=== PATIENT | female | born 1965 | race Caucasian/White ===

== ENCOUNTER 2019-07-01 11:19 | Emergency (ER) | payer SELFPAY ==
[2019-07-01] MEDS ORDERED: Acetaminophen 500 MG TAB ONE (11:58)
[2019-07-01] MEDS ORDERED: cloNIDine 0.1 MG TAB ONE (11:58)
[2019-07-01] MEDS ORDERED: Amlodipine 5 MG TAB ONE (11:58)
[2019-07-01 12:11] LABS: #Eosinphils 0.2 thou/uL (0.0-0.7); #Lymphocytes 1.5 thou/uL (1.20-3.40); #Monocytes 0.8 thou/uL (0.11-0.59); #Neutrophils 6.1 thou/uL (1.40-6.50); %Basophils 0.6 % (0.0-1.0); %Eosinophils 2.2 % (0.0-10.0); %Lymphocytes 17.6 % (21.0-51.0); %Monocytes 8.8 % (0.0-10.0); %Neutrophils 70.8 % (42.0-75.0); Hemoglobin 13.8 g/dL (12.0-16.0); Mean Corpuscular HGB CONC 34.8 g/dL (32.0-36.0); Mean Corpuscular Hemoglobin 34.4 pg (27.0-31.0); Mean Corpuscular Volume 98.9 fL (78.0-98.0); Mean Platelet Volume 7.8 fL (7.4-10.4); Platelet Count 353 thou/uL (130-400); RBC Distribution Width 13.1 % (11.5-14.5); Red Blood Cell (RBC) Count 4.01 mill/uL (4.20-5.40); White Blood Cell (WBC) Count 8.6 thou/uL (4.8-10.8)
[2019-07-01] MEDS ORDERED: Losartan 25 MG TAB PO SCH (12:15)
[2019-07-01 12:23] LABS: Bilirubin Negative (Negative); Blood, Urine Negative (Negative); Clarity Clear (Clear); Glucose, Urine (Dipstick) Normal (Negative); Leukocyte Negative Leu/uL (Negative); Nitrite Negative (Negative); Protein, Urine (Dipstick) Negative (Neg-Trace); Urobilinogen Normal mg/dL (Less than 2)
[2019-07-01 12:31] LABS: ALT (SGPT) 10 U/L (8-55); AST (SGOT) 14 U/L (5-34); Albumin 4.1 g/dL (3.5-5.0); Alkaline Phosphatase 81 U/L (40-110); Anion Gap 13 mmol/L (10-20); BUN (Urea Nitrogen) 15 mg/dL (9.8-20.1); Bilirubin, Total 0.3 mg/dL (0.2-1.2); Calc. Creatinine Clearance 0 mL/min (70-130); Calcium 8.8 mg/dL (7.8-10.44); Carbon Dioxide 28 mmol/L (22-29); Chloride 105 mmol/L (98-107); Estimated GFR-MDRD 71; Globulin 2.8 g/dL (2.4-3.5); Glucose 91 mg/dL (70-105); Potassium 3.3 mmol/L (3.5-5.1); Protein, Total 6.9 g/dL (6.0-8.3); Sodium 143 mmol/L (136-145)
[2019-07-01] MEDS ORDERED: diphenhydrAMINE 50 MG/ML VIAL ONE (13:21)
[2019-07-01] MEDS ORDERED: Metoclopramide HCl 10 MG/2 ML VIAL ONE (13:21)
== END 2019-07-01 14:53 | disposition home or self-care (01) ==
LOC: ERS 11:19
DX: I10 Essential (primary) hypertension (principal); R51 Headache; F17.210 Nicotine dependence, cigarettes, uncomplicated; F41.9 Anxiety disorder, unspecified; F32.9 Major depressive disorder, single episode, unspecified; Z86.73 Personal history of transient ischemic attack (TIA), and cerebral infarction without residual deficits; Z79.899 Other long term (current) drug therapy; Z79.82 Long term (current) use of aspirin
CPT/HCPCS: 80053; 81003; 85025; 96365; 96375; J1200; J2765

== ENCOUNTER 2019-10-16 16:08 | Observation (INO) | payer SELFPAY ==
[2019-10-16] MEDS ORDERED: Metoclopramide HCl 10 MG/2 ML VIAL ONE (16:41)
[2019-10-16] MEDS ORDERED: Ketorolac Tromethamine 30 MG/ML VIAL ONE (16:41)
[2019-10-16] MEDS ORDERED: Ondansetron PF 4 MG/2 ML Vial ONE (16:41)
[2019-10-16] MEDS ORDERED: diphenhydrAMINE 50 MG/ML VIAL ONE (16:41)
--- NOTE | 2019-10-16 16:54 | CT ---
CT HEAD WITHOUT CONTRAST: 10/16/19 INDICATIONS: Headache. History of hypertension. Comparison made to prior CT from 2014. An MRI from 2014 showed infarcts involving the left cortex and periventricular white matter. FINDINGS: Ventricles have normal size and position. Severe chronic ischemic white matter changes are seen for p atient's age. There is evidence of numerous lacunar infarcts in the centrum semiovale bilaterally. La cunar infarcts are seen in the basal ganglia regions bilaterally. No evidence of hemorrhage or mass. No acute cortical infarct. Sinuses and mastoids are clear. IMPRESSION: Severe chronic ischemic change for age with evidence of old lacunar infarcts, compatible with a histo ry of longstanding hypertension and corresponding to the prior MRI findings from 2014. No acute proce ss apparent. New lacunar infarct could easily be obscured and if there are new neurologic deficits, r ecommend further evaluation with elective MRI of brain which could be performed without IV contrast. POS: [facility]
[2019-10-16] MEDS ORDERED: Aspirin Chewable 81 MG TAB ONE ×2 (17:11→17:21)
[2019-10-16] MEDS ORDERED: hydrALAZINE 20 MG/ML VIAL ONE (17:11)
[2019-10-16] MEDS ORDERED: Nitroglycerin 2% Ointment 1 INCH/1 GM Packet ONE ×2 (17:11→17:21)
[2019-10-16 17:12] LABS: #Basophils 0.1 thou/uL (0.0-0.2); #Eosinphils 0.1 thou/uL (0.0-0.7); #Lymphocytes 1.4 thou/uL (1.20-3.40); #Monocytes 0.6 thou/uL (0.11-0.59); %Basophils 0.6 % (0.0-1.0); %Eosinophils 0.8 % (0.0-10.0); %Lymphocytes 13.6 % (21.0-51.0); %Neutrophils 78.9 % (42.0-75.0); Hemoglobin 18.7 g/dL (12.0-16.0); Mean Corpuscular HGB CONC 34.5 g/dL (32.0-36.0); Mean Corpuscular Hemoglobin 34.5 pg (27.0-31.0); Mean Platelet Volume 8.5 fL (7.4-10.4); Platelet Count 372 thou/uL (130-400); RBC Distribution Width 12.6 % (11.5-14.5); Red Blood Cell (RBC) Count 5.41 mill/uL (4.20-5.40); White Blood Cell (WBC) Count 10.1 thou/uL (4.8-10.8)
[2019-10-16] MEDS ORDERED: Aspirin 325 MG TAB ONE (17:21)
[2019-10-16 17:33] LABS: ALT (SGPT) 9 U/L (8-55); AST (SGOT) 13 U/L (5-34); Albumin 4.6 g/dL (3.5-5.0); Alkaline Phosphatase 91 U/L (40-110); Anion Gap 15 mmol/L (10-20); BUN (Urea Nitrogen) 7 mg/dL (9.8-20.1); Bilirubin, Total 0.6 mg/dL (0.2-1.2); Calc. Creatinine Clearance 0 mL/min (70-130); Calcium 10.1 mg/dL (7.8-10.44); Carbon Dioxide 28 mmol/L (22-29); Chloride 101 mmol/L (98-107); Estimated GFR-MDRD 75; Globulin 3.3 g/dL (2.4-3.5); Glucose 94 mg/dL (70-105); Potassium 3.3 mmol/L (3.5-5.1); Protein, Total 7.9 g/dL (6.0-8.3); Sodium 141 mmol/L (136-145)
--- NOTE | 2019-10-16 17:38 | RAD ---
PORTABLE CHEST: 10/16/19 INDICATION: Headache, hypertension. COMPARISON: 10/25/13. The lung juárez appear clear. Vasculature normal. Heart and mediastinum unremarkable and unchanged. IMPRESSION: No acute findings. POS: [facility]
[2019-10-16 17:54] LABS: CKMB 0.8 ng/mL (0-6.6)
[2019-10-16 18:43] LABS: Iron Binding Capacity, Total 256 mcg/dL (265-497)
[2019-10-16 18:44] LABS: Iron 77 ug/dL (50-170)
[2019-10-16] MEDS ORDERED: Amlodipine 5 MG TAB ONE (18:45)
[2019-10-16] MEDS ORDERED: Labetalol HCl 100 MG/20 ML VIAL ONE (18:45)
[2019-10-16 19:16] LABS: Amphetamine Not Detected (NotDetected); Barbiturates Screen Not Detected (NotDetected); Benzodiazepine Screen Not Detected (NotDetected); Cocaine Metabolite Screen Not Detected (NotDetected); Medtox Control Line Valid? VALID (VALID); Medtox Reader # READER 1; Methadone Not Detected (NotDetected); Methamphetamine Not Detected (NotDetected); Opiate Screen Detected (NotDetected); Oxycodone Screen Not Detected (NotDetected); Phencyclidine (PCP) Not Detected (NotDetected); THC/Cannabinoid Screen Detected (NotDetected); Tricyclic Screen Not Detected (NotDetected)
[2019-10-16 19:34] LABS: Bilirubin Negative (Negative); Blood, Urine Negative (Negative); Clarity Clear (Clear); Glucose, Urine (Dipstick) Normal (Negative); Leukocyte Negative Leu/uL (Negative); Nitrite Negative (Negative); Protein, Urine (Dipstick) Negative (Neg-Trace); Urobilinogen Normal mg/dL (Less than 2)
--- NOTE | 2019-10-16 19:37 | PDOC.FPRHP ---
- Allergies/Adverse Reactions Allergies Allergy/AdvReac Type Severity Reaction Status Date / Time clonidine Allergy Severe Verified 01/23/13 21:16 morphine Allergy Intermediate itching Verified 01/23/13 20:50 - Home Medications Medication Instructions Recorded Confirmed Type Aspirin [Ecotrin] 325 mg PO DAILY 10/16/19 10/16/19 History Hydrochlorothiazide 25 mg PO DAILY 10/16/19 10/16/19 History Losartan Potassium 50 mg PO DAILY 10/16/19 10/16/19 History - History PMHx: PSHx: FHx: Social: - Vital signs BP: [] HR: [] RR: [] Tmax: [] Pox: []% on [] Wt: [] FMR H&P: Results - Labs Result Diagrams: 10/16/19 17:03 10/16/19 17:03 Lab results: WBC 10.1 thou/uL (4.8-10.8) 10/16/19 17:03 Hgb 18.7 g/dL (12.0-16.0) H 10/16/19 17:03 Hct 54.2 % (36.0-47.0) H 10/16/19 17:03 MCV 100.0 fL (78.0-98.0) H 10/16/19 17:03 Plt Count 372 thou/uL (130-400) 10/16/19 17:03 Neutrophils % 78.9 % (42.0-75.0) H 10/16/19 17:03 Sodium 141 mmol/L (136-145) 10/16/19 17:03 Potassium 3.3 mmol/L (3.5-5.1) L 10/16/19 17:03 Chloride 101 mmol/L (98-107) 10/16/19 17:03 Carbon Dioxide 28 mmol/L (22-29) 10/16/19 17:03 BUN 7 mg/dL (9.8-20.1) L 10/16/19 17:03 Creatinine 0.80 mg/dL (0.6-1.1) 10/16/19 17:03 Glucose 94 mg/dL (70-105) 10/16/19 17:03 Calcium 10.1 mg/dL (7.8-10.44) 10/16/19 17:03 Total Bilirubin 0.6 mg/dL (0.2-1.2) 10/16/19 17:03 AST 13 U/L (5-34) 10/16/19 17:03 ALT 9 U/L (8-55) 10/16/19 17:03 Alkaline Phosphatase 91 U/L (40-110) 10/16/19 17:03 CK-MB (CK-2) 0.8 ng/mL (0-6.6) 10/16/19 17:03 Serum Total Protein 7.9 g/dL (6.0-8.3) 10/16/19 17:03 Albumin 4.6 g/dL (3.5-5.0) 10/16/19 17:03 FMR H&P: Upper Level - Plan Date/Time: 10/16/191934 PCP: CC- none HPI: This is a 53 yo F who came in today for evaluation of her blood pressure as well as headache/dizziness. The patient states that she checks her BP at home and it is usually in the 200s systolic. She takes losartan and HCTZ that she gets from a friend. She had a stroke in 2013 with residual capacity management specialist defificit in the R hand but has no other deficits to report. She denies CP, palpitations, or SOB. She has not seen a doctor in 3-4years. She uses THC and hydrocodone from a friend but denies any other drug use. She states she is not currently feeling dizziness, denies vertigo, states that when it comes on it is a light- headedness. Denies any falls, unilateral weakness, or slurred speech. She has smoked for 40 years, smoking 0.5ppd up to 3ppd. PMH: HTN, TIA, CVA 2013 PSH: C/s x3 Meds: losartan, HCTZ Allergies: NKDA Soc Hx: 40+ pack-year smoker, THC, denies alcohol Fm hx: heart disease in father, unknown age REVIEW OF SYSTEMS: Gen: no fever, chills, or sweats Neuro: mild headache Eyes: no visual changes ENT: no hearing changes, no sore throat, no congestion Resp: denies cough, SOB Card: CP, palpitations GI: no N/V/D, no abdominal pain Skin: no rash, no erythema Vitals: BP: 220/113->176/99, Pulse: 83, Resp: 18, Temp: 97.7 O2 sat: 96 on ( Room Air), 57kg PHYSICAL EXAMINATION: General: NAD, alert and oriented x3 HEENT: PERRLA, EOMI, normal sclera, oropharynx without erythema or exudate, poor dentition Neck: Supple. Full ROM. Heart/Cardiovascular System: RRR, Cap refill < 3 seconds, 2/6 systolic murmur Lungs/Respiratory System: CTA-B, no resp distress Abdomen/Gastro-Intestinal System: no abdominal tenderness, normal bowel sounds Extremities: Warm extremities. No cyanosis or edema Neuro: No gross deficits appreciated. CN 2-12 grossly intact. NIHSS:0, HINTS negative, Walks to restroom without difficulty, visual juárez intact, no dysdiadodokinesia Psychiatry: Awake, Alert and cooperative with exam Skin: No lesions, rashes, or ulcers Musculoskeletal: Full ROM A/P: # HTN urgency -No EKG changes, Cr 0.8, mild headache, chronic BPs in 200s systolic, trop 0.071 -HTN emergency is considered but seems less likely at this time -BP decreased by 25% in ED -Goal BP <160/110 over next 24 hrs -Eval for secondary htn, renal a. US, renin/aldosterone -Added amlodipine, was on this previously, cont hydralazine PRN -EKG does not meet criteria for LVH, murmur noted on exam, consider echo pending results of initial workup # Hx of CVA - CT shows chronic ischemic changes, ordered MRI and carotid Doppler for f/u - no deficits on exam - start atorvastatin, FLP # Polycythemia Vera -Suspect 2/2 smoking -Hgb 18, iron studies ordered, CBC path review -Consider jak2, epo # Elevated troponin -Trend, no suspicious EKG changes Fluids: TKO Code: full PPx: lovenox, pepcid Dispo: 1-2 day, admitted as obs status Addendum - Attending - Attending Attestation Date/Time: 10/16/192053 I personally evaluated the patient and discussed the management with Dr. Adam I agree with the History, Examination, Assessment and Plan documented above with any addition or exceptions noted below. will add TTE to evaluate murmur and for pulm HTN given polycythemia. evaluating for secondary HTN given resistance to antihypertensive therapy with renin/ aldosterone level and renal US. with chronic hypokalemia, concerning for possible hyperaldosteronism. trend trops. EKG borderline LVH.
[2019-10-16] MEDS ORDERED: Ondansetron PF 4 MG/2 ML Vial IVP PRN (19:51)
[2019-10-16] MEDS ORDERED: Ondansetron ODT 4 MG TAB SL PRN (19:51)
[2019-10-16] MEDS ORDERED: Acetaminophen 325 MG TAB PO PRN (19:51)
[2019-10-16] MEDS ORDERED: Sodium Chloride 0.9% 1,000 ML IV SCH (19:51)
[2019-10-16] MEDS ORDERED: Ibuprofen 200 MG TAB PO PRN (19:56)
[2019-10-16] MEDS ORDERED: Nitroglycerin 0.4 MG TAB (25 Tab Bottle) SL PRN (19:56)
[2019-10-16] MEDS ORDERED: Potassium Chloride 20 MEQ TAB PO SCH (20:30)
[2019-10-16] MEDS: Atorvastatin Calcium 40 MG TAB PO SCH (20:54)
[2019-10-16] MEDS: Famotidine 20 MG TAB PO SCH (20:54)
[2019-10-16] MEDS: Acetaminophen 325 MG TAB PO PRN (21:39)
[2019-10-17 04:41] LABS: Anion Gap 10 mmol/L (10-20); BUN (Urea Nitrogen) 10 mg/dL (9.8-20.1); Calc. Creatinine Clearance 79 mL/min (70-130); Calcium 8.9 mg/dL (7.8-10.44); Carbon Dioxide 26 mmol/L (22-29); Cardiac Risk 5.6 (Less than 4.5); Chloride 108 mmol/L (98-107); Cholesterol 151 mg/dl (< 200 Desired); Estimated GFR-MDRD 79; Glucose 84 mg/dL (70-105); HDL Cholesterol 27 mg/dL (>60 Neg Risk); LDL Cholesterol, Calculated 105 mg/dL; Potassium 3.4 mmol/L (3.5-5.1); Sodium 141 mmol/L (136-145); Triglycerides 96 mg/dL (Less than 150)
[2019-10-17] MEDS ORDERED: Potassium Chloride 20 MEQ TAB PO SCH (05:33)
--- NOTE | 2019-10-17 05:37 | PDOC.FM ---
- Subjective Subjective: Patient doing well this morning. Reports she continues to have a slight headache , dizziness is improved. No chest pain. States she was taking losartan and hctz that she would get from a friend. She would measure her BP 2-3x/day and it would be 200s/100s both before and after the medication. Discussed plans of care of looking for other causes of her HTN, patient agreeable with plan of care. - Objective Vital Signs & Weight: Vital Signs (12 hours) Temp Pulse Resp BP Pulse Ox 10/17/19 03:32 97.9 F 59 L 18 166/77 H 93 L 10/17/19 00:00 98.0 F 72 20 125/70 97 10/16/19 20:59 98.1 F 74 20 178/90 H 97 Weight Weight 59.239 kg Result Diagrams: 10/16/19 17:03 10/17/19 04:03 Phys Exam - Physical Examination Constitutional: NAD HEENT: moist MMs, sclera anicteric Neck: supple, full ROM Respiratory: no wheezing, clear to auscultation bilateral Cardiovascular: RRR 2/6 systolic murmur Gastrointestinal: no distention, positive bowel sounds Musculoskeletal: no edema, pulses present Neurological: normal sensation, moves all 4 limbs Psychiatric: normal affect, A&O x 3 Skin: no rash, normal turgor Dx/Plan (1) Elevated troponin Code(s): R79.89 - OTHER SPECIFIED ABNORMAL FINDINGS OF BLOOD CHEMISTRY Status : Acute (2) Hypokalemia Code(s): E87.6 - HYPOKALEMIA Status: Acute (3) Cerebrovascular accident Code(s): I63.9 - CEREBRAL INFARCTION, UNSPECIFIED Status: Chronic (4) Hypertensive disorder, systemic arterial Code(s): I10 - ESSENTIAL (PRIMARY) HYPERTENSION Status: Chronic - Plan Plan: Patient is a 54F with PMHx of HTN and prior CVA who is admitted for: # HTN urgency -No EKG changes, Cr 0.8, mild headache, chronic BPs in 200s systolic, trop 0.071 >0.058 -BP decreased by 25% in ED -Goal BP <160/110 over next 24 hrs; BP 125-178/70-90 -renal artery US and renin/aldosterone pending to workup secondary causes of HTN -Started on amlodipine, losartan, and HCTZ -cont hydralazine PRN -EKG does not meet criteria for LVH -Murmur noted on exam, TTE pending # Hx of CVA - CT shows chronic ischemic changes - MRI and carotid Doppler pending - no deficits on exam - start atorvastatin - FLP:triglycerides 96, cholesterol 151, LDL 105, HDL 27 # Polycythemia Vera -Suspect 2/2 smoking -Hgb 18 -Iron 77, TIBC low 256, ferritin 30.45 -CBC path review pending -Consider jak2, epo # Elevated troponin -0.071>0.058 -Trend, no suspicious EKG changes Fluids: TKO Code: full PPx: lovenox, pepcid Dispo: admitted as obs for HTN urgency and HTN workup PCP:ANNALEE
[2019-10-17 06:39] LABS: Troponin I 0.058 ng/mL (< 0.028)
--- NOTE | 2019-10-17 07:57 | ULT ---
RENAL AND RENAL ARTERY ULTRASOUND: Date: 10/17/2019 HISTORY: Hypertension. TECHNIQUE: Multiplanar Zee scale and color Doppler images were obtained in bilateral renal and renal artery ult rasound. Spectral analysis of the Doppler waveforms of the renal arteries were performed. FINDINGS: The kidneys are normal in echogenicity without hydronephrosis or calculi, and measure 10.9 and 10.3 c m in length on the right and left, respectively. The urinary bladder is unremarkable. Peak systolic velocity in the aorta is 80 cm/second. Peak systolic velocity in the right renal artery is 353 cm/second. Peak systolic velocity in the left renal artery is 179 cm/second. Right renal artery to aortic ratio is 4.4. Left renal artery to aortic ratio is 2.2. IMPRESSION: 1. No significant abnormality of the kidneys. 2. Abnormal velocity in the right renal artery is concerning for right renal artery stenosis. POS: [facility]
--- NOTE | 2019-10-17 08:08 | ULT ---
CAROTID ARTERIAL DOPPLER ULTRASOUND: DATE: 10/17/2019 COMPARISON: 09/28/2013. HISTORY: Dizziness. TECHNIQUE: Multiplanar Zee scale sonographic imaging of the arterial structures of the neck obtained with color flow and spectral analysis. FINDINGS: Antegrade blood flow and normal arterial waveforms are documented within the carotid and vertebral sy stem bilaterally. There is circumferential eccentric soft plaque within the distal right CCA, more prominent than on th e prior exam. Mild calcified plaque also noted within the distal CCA and proximal ICA on the right. There is circumferential partially calcified plaque at the origin of the left ICA, slightly more prom inent than on the prior study as well. VESSEL PSV (cm/sec) Right CCA 71 Right ICA 74 Right ECA 104 Left CCA 72 Left ICA 83 Left ECA 80 ICA/CCA ratio is 1.0 on the right and 1.2 on the left. IMPRESSION: No hemodynamically significant stenosis on the basis of sonographic velocity criteria. POS: [facility]
[2019-10-17 08:21] LABS: Anisocytosis SLIGHT = 6-15 cells (100X) (0-5/hpf); Band 2 % (5-11); Eosinophils 2 % (0-10); Hemoglobin 14.8 g/dL (12.0-16.0); Large Platelets SLIGHT; Lymphocytes 16 % (21-51); MDiff Complete? YES; Mean Corpuscular HGB CONC 34.5 g/dL (32.0-36.0); Mean Corpuscular Hemoglobin 34.9 pg (27.0-31.0); Mean Platelet Volume 8.8 fL (7.4-10.4); Monocytes 2 % (0-10); Neutrophil 78 % (42-75); Platelet Count 279 thou/uL (130-400); RBC Distribution Width 12.6 % (11.5-14.5); Red Blood Cell (RBC) Count 4.24 mill/uL (4.20-5.40); Target Cells SLIGHT = 2-5 cells (100X) (0-1/hpf); White Blood Cell (WBC) Count 8.9 thou/uL (4.8-10.8)
[2019-10-17] MEDS ORDERED: Losartan 25 MG TAB PO SCH (09:00)
[2019-10-17] MEDS ORDERED: Amlodipine 10 MG TAB PO SCH (09:00)
[2019-10-17] MEDS: Hydrochlorothiazide 25 MG TAB PO SCH (09:14)
[2019-10-17] MEDS: Enoxaparin Sodium 40 MG/0.4 ML SYRINGE SC SCH (09:15)
[2019-10-17] MEDS: Aspirin 325 mg Enteric Coated Tablet PO SCH (09:15)
[2019-10-17] MEDS: Famotidine 20 MG TAB PO SCH ×2 (09:15→20:00)
[2019-10-17] MEDS: hydrALAZINE 20 MG/ML VIAL SLOW IVP PRN ×2 (11:39→15:49)
[2019-10-17] MEDS ORDERED: Labetalol HCl 100 MG/20 ML VIAL SLOW IVP PRN (15:55)
[2019-10-17] MEDS: Acetaminophen 325 MG TAB PO PRN (18:50)
[2019-10-17] MEDS: Ondansetron ODT 4 MG TAB PO PRN (18:51)
[2019-10-17] MEDS: Atorvastatin Calcium 40 MG TAB PO SCH (19:59)
[2019-10-17] MEDS: Metoprolol Tartrate 25 MG TAB PO SCH (20:00)
[2019-10-17] MEDS: Losartan 25 MG TAB PO SCH (20:01)
[2019-10-17] MEDS: Ketorolac Tromethamine 30 MG/ML VIAL IVP PRN (20:23)
[2019-10-18] MEDS: Ketorolac Tromethamine 30 MG/ML VIAL IVP PRN (02:56)
[2019-10-18] MEDS: hydrALAZINE 20 MG/ML VIAL SLOW IVP PRN ×2 (03:40→10:03)
--- NOTE | 2019-10-18 06:29 | PDOC.FM ---
- Subjective Subjective: Doing well this morning. Had slight GONZALEZ overnight but relieved with Toradol. No CP, SOB, n/v, fever/chills. Tolerating PO well. Ambulating, voiding. Eager for discharge home. Plans to f/u with [facility] for PCP as Outpt. - Objective MAR Reviewed: Yes Vital Signs & Weight: Vital Signs (12 hours) Temp Pulse Resp BP Pulse Ox 10/18/19 03:30 98.8 F 60 16 187/97 H 95 10/17/19 23:20 98.4 F 58 L 18 164/83 H 94 L 10/17/19 19:39 98.5 F 71 16 170/83 H 95 Weight Weight 57.289 kg I&O: 10/16/19 10/17/19 10/18/19 06:59 06:59 06:59 Intake Total 290 1460 Balance 290 1460 Result Diagrams: 10/17/19 05:49 10/18/19 07:31 Phys Exam - Physical Examination Constitutional: NAD (resting comfortably) HEENT: moist MMs poor dentition, mising teeth Neck: supple Respiratory: no wheezing, no rales, no rhonchi, clear to auscultation bilateral Cardiovascular: RRR, no rub Gastrointestinal: soft, non-tender, no distention, positive bowel sounds Musculoskeletal: no edema Neurological: moves all 4 limbs Psychiatric: normal affect, A&O x 3 Dx/Plan (1) Hypertensive urgency Code(s): I16.0 - HYPERTENSIVE URGENCY Status: Acute (2) Elevated troponin Code(s): R79.89 - OTHER SPECIFIED ABNORMAL FINDINGS OF BLOOD CHEMISTRY Status : Acute - Plan Plan: 54F with PMHx of HTN and prior CVA who is admitted for: #HTN urgency - No EKG changes, Cr 0.8, mild headache, chronic BPs in 200s systolic, trop 0.071>0.058 - BP decreased by 25% in ED - Goal BP <160/110; BP 164/83-187/97 currently - renal artery US demonstrated R renal artery stenosis, will need close OP f/u for possible surgical intervention in future - Renin/aldosterone pending - Started on amlodipine, losartan, HCTZ, and metoprolol; will need continued titration of medication as outpt - will need monitoring of lytes with new BP meds, AM labs pending. - cont hydralazine PRN - Echo with 60-65% EF, LVH, and diastolic dysfunction #Hx of CVA - CT shows chronic ischemic changes - Carotid Dopplers no acute findings. Consider MRI as outpt. - no deficits on exam - started atorvastatin - FLP:triglycerides 96, cholesterol 151, LDL 105, HDL 27 #Polycythemia Vera - Suspect 2/2 smoking - Hgb 18 - Iron 77, TIBC low 256, ferritin 30.45 - CBC path review pending - Consider jak2, epo #Elevated troponin -0.071>0.058 -Trend, no suspicious EKG changes - likely 2/2 HTN #Substance abuse - tob, etOH, and THC. Counseled extensively on risks of continued use, voiced understanding Fluids: TKO Code: full PPx: lovenox, pepcid Dispo: Admitted as obs for HTN urgency and HTN workup. BP improved this AM, anticipate discharge today pending clinical course. PCP:ANNALEE Addendum - Attending - Attending Attestation Date/Time: 10/18/19 [id number] I personally evaluated the patient and discussed the management with Dr. Segovia. I agree with the History, Examination, Assessment and Plan documented above with any addition or exceptions noted below. Patient improved. BP more stable from baseline. Likely dc later today with close outpatient follow up regarding BP control and BIANCA.
[2019-10-18] MEDS: Aspirin 325 mg Enteric Coated Tablet PO SCH (08:35)
[2019-10-18] MEDS: Enoxaparin Sodium 40 MG/0.4 ML SYRINGE SC SCH (08:35)
[2019-10-18] MEDS: Losartan 25 MG TAB PO SCH (08:36)
[2019-10-18] MEDS: Famotidine 20 MG TAB PO SCH (08:36)
[2019-10-18] MEDS: Hydrochlorothiazide 25 MG TAB PO SCH (08:36)
[2019-10-18 08:37] LABS: Anion Gap 13 mmol/L (10-20); BUN (Urea Nitrogen) 11 mg/dL (9.8-20.1); Calc. Creatinine Clearance 69 mL/min (70-130); Calcium 9.6 mg/dL (7.8-10.44); Carbon Dioxide 24 mmol/L (22-29); Chloride 105 mmol/L (98-107); Estimated GFR-MDRD 71; Glucose 91 mg/dL (70-105); Sodium 139 mmol/L (136-145)
[2019-10-18] MEDS: Metoprolol Tartrate 25 MG TAB PO SCH (08:37)
[2019-10-18] MEDS: Acetaminophen 325 MG TAB PO PRN (08:38)
[2019-10-18] MEDS ORDERED: NIFEdipine XL 60 MG TAB PO SCH (09:00)
[2019-10-18] MEDS ORDERED: Potassium Chloride 20 MEQ TAB PO SCH (11:30)
[2019-10-18 12:04] VITALS: TEMP 97.8
[2019-10-18] MEDS: Ondansetron ODT 4 MG TAB PO PRN (12:23)
[2019-10-18 12:59] VITALS: BMI 20.9
[2019-10-18] MEDS ORDERED: hydrALAZINE 20 MG/ML VIAL SLOW IVP SCH (13:30)
[2019-10-18] MEDS ORDERED: Ketorolac Tromethamine 30 MG/ML VIAL IVP SCH (13:30)
[2019-10-18 15:11] VITALS: BP 147/73
--- NOTE | 2019-10-19 08:51 | DIS ---
DATE OF ADMISSION: 10/16/2019 DATE OF DISCHARGE: 10/18/2019 RESIDENT: Riki Segovia MD ADMITTING ATTENDING: Srinivasa Reid MD DISCHARGE ATTENDING: Deandre Srivastava MD CONSULTS: None. PROCEDURES: 1. Brain CT on 10/16/2019, demonstrating severe chronic ischemic changes for age with evidence of old lacunar infarcts compatible with history of longstanding hypertension and corresponding to the prior MRI findings from 2014. No acute process apparent. New lacunar infarcts could easily be obscured. If there are new neurologic deficits, recommend further evaluation with MRI. 2. Chest x-ray on 10/16/2019, demonstrating no acute findings. 3. Carotid Doppler ultrasound on 10/17/2019, demonstrating no hemodynamic significant stenosis on the basis of sonographic velocity criteria. 4. Renal ultrasound on 10/17/2019, demonstrating abnormal velocity in the right renal artery concerning for right renal artery stenosis. 5. Echocardiogram on 10/17/2019, demonstrating a moderate concentric left ventricular hypertrophy. The ejection fraction of 60% to 65%. Suggestive of diastolic dysfunction. Mild mitral regurgitation is present. PRIMARY DIAGNOSES: 1. Hypertensive urgency. 2. Renal artery stenosis. SECONDARY DIAGNOSES: 1. History of cerebrovascular accident. 2. Polycythemia vera. 3. Elevated troponin, resolved. 4. History of polysubstance abuse. MEDICATIONS: Discharge medications: 1. Aspirin 325 mg p.o. daily. 2. Lipitor 40 mg p.o. q.h.s. 3. Losartan 50 mg p.o. b.i.d. 4. Procardia XL 60 mg p.o. daily. 5. Hydrochlorothiazide 25 mg p.o. daily. Discontinued medications: 1. Losartan 50 mg p.o. daily. HISTORY OF PRESENT ILLNESS AND HOSPITAL COURSE: The patient is a 54-year-old female who presented to the emergency department for headache and dizziness. States she takes her blood pressure at home usually in the 200s systolic. She takes losartan/hydrochlorothiazide from a friend inconsistently. She states that she has had a stroke back in 2013 with residual right upper extremity weakness. She denies any chest pain, palpitations, or shortness of breath and states she has not seen a doctor in many years. She has a 40 plus pack-year smoking history. On admission, her EKG did not show any acute changes. Renal function was within normal limits. Head CT with findings per above and the troponin was mildly elevated at 0.071. Blood pressures were in the 200s and she was admitted for hypertensive urgency. Regarding the patient's hypertension, her troponin was trended and down to the 0.058. The blood pressure decreased by 25% and was running into the systolic 160s to 180s at the time of discharge. Renal ultrasound was obtained that showed right renal artery stenosis. A renin and aldosterone were pending at the time of discharge. The patient was started on losartan/hydrochlorothiazide and Procardia with improvement of blood pressure. Electrolytes were monitored and replaced as necessary. An echocardiogram was obtained per above. It is recommended the patient follow up with a primary care physician for further titration of her blood pressure management. Her hypertension was improved and her symptoms were resolved at the time of discharge. The patient will need repeat monitoring of her electrolytes within 2 to 3 weeks of starting her medication and will need continued titration as appropriate. The patient voiced agreement and understanding of this plan. History of cerebrovascular accident. The patient states she has a history of CVA in 2013. A CT showed multiple lacunar infarcts. The patient did not have any acute neurologic deficits at the time of hospitalization. Carotid Dopplers were negative. Consider an MRI as an outpatient for further evaluation of this. The patient was medically optimized, continued on her aspirin and atorvastatin. The patient had polycythemia vera with hemoglobin 18 suspected secondary to smoking. The patient was encouraged to quit. Consider further monitoring as an outpatient. The patient also has substance abuse including marijuana and tobacco and alcohol. The patient was counseled extensively on the risks of these and encouraged to quit. At the time of discharge, the patient was doing very well and symptom-free. Blood pressure was better controlled. The patient was tolerating new medications well. Discharge plan discussed with patient who voiced agreement and understanding of discharge plan. All questions were answered appropriately. DISPOSITION: Stable. DISCHARGE INSTRUCTIONS: 1. Location: Home. 2. Diet: Low sodium, heart healthy. 3. Activity: As tolerated. 4. Followup: The patient to follow up with the primary care physician within one week of discharge. The patient plans to follow up with [facility] in her hometown. Job ID: [id number]
[2019-10-21 13:37] LABS: Renin Activity 1.19 ng/mL/hr (0.167-5.380)
--- NOTE | 2019-10-23 09:29 | EKG ---
Test Reason : HTN Blood Pressure : / mmHG Vent. Rate : 058 BPM Atrial Rate : 058 BPM P-R Int : 152 ms QRS Dur : 090 ms QT Int : 502 ms P-R-T Axes : 016 -07 093 degrees QTc Int : 492 ms Sinus bradycardia Abnormal QRS-T angle, consider primary T wave abnormality Abnormal ECG Confirmed by SHANNAN DAVILA, ELSA Saleh ([id number]), editorial manager JEFF FARR ([id number]) on 10/23/2019 9:28:58 AM Referred By: Confirmed By:ELSA CAMPBELL MD
== END 2019-10-18 15:30 | disposition home or self-care (01) ==
LOC: ERS 16:08 → 2NO 18:37
PROVIDERS: ADMIT Family Medicine; ATTEND Family Medicine
DX: I16.0 Hypertensive urgency (principal); I10 Essential (primary) hypertension; I70.1 Atherosclerosis of renal artery; D45 Polycythemia vera; R79.89 Other specified abnormal findings of blood chemistry; F17.210 Nicotine dependence, cigarettes, uncomplicated; F12.10 Cannabis abuse, uncomplicated; E87.6 Hypokalemia; Z86.73 Personal history of transient ischemic attack (TIA), and cerebral infarction without residual deficits; Z91.19 Patient's noncompliance with other medical treatment and regimen; Z79.82 Long term (current) use of aspirin; Z79.899 Other long term (current) drug therapy; Z88.5 Allergy status to narcotic agent; Z88.8 Allergy status to other drugs, medicaments and biological substances
CPT/HCPCS: 36415; 70450; 71045; 76770; 80048; 80053; 80061; 80306; 81003; 82088; 82553; 82728; 83540; 83550; 83735; 84244; 84484; 85007; 85025; 85027; 85060; 93005; 93306; 93880; 96361; 96365; 96372; 96375; 96376; G0378; J0360; J1200; J1650; J1885; J2405; J2765; Q0162

== ENCOUNTER 2020-04-09 09:24 | Emergency (ER) | payer SELFPAY ==
[2020-04-09 10:20] LABS: #Basophils 0.1 thou/uL (0.0-0.2); #Eosinphils 0.1 thou/uL (0.0-0.7); #Lymphocytes 1.3 thou/uL (1.20-3.40); #Monocytes 0.8 thou/uL (0.11-0.59); #Neutrophils 8.6 thou/uL (1.40-6.50); %Basophils 0.8 % (0.0-1.0); %Eosinophils 0.9 % (0.0-10.0); %Lymphocytes 12.1 % (21.0-51.0); %Monocytes 6.9 % (0.0-10.0); %Neutrophils 79.2 % (42.0-75.0); Hemoglobin 16.5 g/dL (12.0-16.0); Mean Corpuscular HGB CONC 34.5 g/dL (32.0-36.0); Mean Corpuscular Hemoglobin 34.5 pg (27.0-31.0); Mean Platelet Volume 8.1 fL (7.4-10.4); Platelet Count 411 thou/uL (130-400); RBC Distribution Width 12.8 % (11.5-14.5); Red Blood Cell (RBC) Count 4.77 mill/uL (4.20-5.40); White Blood Cell (WBC) Count 10.8 thou/uL (4.8-10.8)
[2020-04-09] MEDS ORDERED: Magnesium 2 GM/50 ML BAG (IN WATER) ONE ×2 (10:23→11:10)
[2020-04-09] MEDS ORDERED: diphenhydrAMINE 50 MG/ML VIAL ONE (10:23)
[2020-04-09] MEDS ORDERED: Metoclopramide HCl 10 MG/2 ML VIAL ONE (10:23)
[2020-04-09 10:46] LABS: ALT (SGPT) 9 U/L (8-55); AST (SGOT) 10 U/L (5-34); Albumin 4.1 g/dL (3.5-5.0); Alkaline Phosphatase 82 U/L (40-110); Anion Gap 15 mmol/L (10-20); BUN (Urea Nitrogen) 11 mg/dL (9.8-20.1); Bilirubin, Total 0.6 mg/dL (0.2-1.2); Calc. Creatinine Clearance 0 mL/min (70-130); Calcium 9.1 mg/dL (7.8-10.44); Carbon Dioxide 30 mmol/L (22-29); Chloride 105 mmol/L (98-107); Estimated GFR-MDRD 67; Globulin 2.9 g/dL (2.4-3.5); Glucose 87 mg/dL (70-105); Potassium 3.5 mmol/L (3.5-5.1); Sodium 146 mmol/L (136-145)
[2020-04-09] MEDS ORDERED: Labetalol HCl 100 MG/20 ML VIAL ONE (12:33)
== END 2020-04-09 14:12 | disposition home or self-care (01) ==
LOC: ERS 09:24
DX: I10 Essential (primary) hypertension (principal); Z86.73 Personal history of transient ischemic attack (TIA), and cerebral infarction without residual deficits; F17.210 Nicotine dependence, cigarettes, uncomplicated; Z79.899 Other long term (current) drug therapy
CPT/HCPCS: 36415; 80053; 85025; 93005; J1200; J2765; J3475

== ENCOUNTER 2020-05-16 18:52 | Inpatient (IN) | payer SELFPAY ==
[2020-05-16 19:40] LABS: #Basophils 0.1 thou/uL (0.0-0.2); #Lymphocytes 1.4 thou/uL (1.20-3.40); #Monocytes 0.6 thou/uL (0.11-0.59); #Neutrophils 3.5 thou/uL (1.40-6.50); %Basophils 1.5 % (0.0-1.0); %Eosinophils 0.6 % (0.0-10.0); %Lymphocytes 25.2 % (21.0-51.0); %Neutrophils 62.7 % (42.0-75.0); Hemoglobin 16.2 g/dL (12.0-16.0); Mean Corpuscular Hemoglobin 34.9 pg (27.0-31.0); Mean Platelet Volume 7.9 fL (7.4-10.4); Platelet Count 329 thou/uL (130-400); RBC Distribution Width 12.7 % (11.5-14.5); Red Blood Cell (RBC) Count 4.66 mill/uL (4.20-5.40); White Blood Cell (WBC) Count 5.6 thou/uL (4.8-10.8)
[2020-05-16] MEDS ORDERED: Labetalol HCl 100 MG/20 ML VIAL ONE (19:57)
[2020-05-16 20:02] LABS: ALT (SGPT) 12 U/L (8-55); AST (SGOT) 17 U/L (5-34); Albumin 4.3 g/dL (3.5-5.0); Alkaline Phosphatase 83 U/L (40-110); Anion Gap 16 mmol/L (10-20); BUN (Urea Nitrogen) 10 mg/dL (9.8-20.1); Bilirubin, Total 0.3 mg/dL (0.2-1.2); CK (CPK) 47 U/L (29-168); Calc. Creatinine Clearance 0 mL/min (70-130); Calcium 9.3 mg/dL (7.8-10.44); Carbon Dioxide 26 mmol/L (22-29); Chloride 103 mmol/L (98-107); Estimated GFR-MDRD 78; Globulin 2.8 g/dL (2.4-3.5); Glucose 79 mg/dL (70-105); Potassium 3.5 mmol/L (3.5-5.1); Protein, Total 7.1 g/dL (6.0-8.3); Sodium 141 mmol/L (136-145)
--- NOTE | 2020-05-16 20:40 | RAD ---
CHEST ONE VIEW: 05/16/20 HISTORY: Hypertension. COMPARISON: Radiograph 10/16/19. Heart size is mildly enlarged. Some scarring in the right lung base which is similar. No confluent ai r space consolidation, pneumothorax or effusion. IMPRESSION: Chronic findings. No acute intrathoracic abnormality. POS: [facility]
[2020-05-16] MEDS ORDERED: niCARdipine 20MG In NaCl 20 MG/200 ML BAG ONE (21:01)
--- NOTE | 2020-05-16 21:06 | CT ---
CT head noncontrast HISTORY: Headache. Hypertension. COMPARISON: 10/16/2019. FINDINGS: There is no evidence of acute intracranial hemorrhage or infarct. Diffuse cortical atrophy and chronic ischemic small vessel disease are again demonstrated. Old infarcts at the left the frontal white matter is stable. There is no mass effect or shift of midline structures. Visualized paranasal sinuses remain well aerated. IMPRESSION : Evidence of prominent chronic ischemic small vessel disease. No acute intracranial abnormalities are demonstrated.
[2020-05-16 22:53] LABS: Troponin I 0.074 ng/mL (< 0.028)
--- NOTE | 2020-05-16 23:36 | PDOC.HHP ---
Hospitalist HPI - History of Present Illness Headache History of Present Illness: 55-year-old woman with a history of hypertension, prior history of CVA, multiple hospitalization for hypertensive urgency presented to the emergency department with a complaint of headache. Her blood pressure was up to 230/[address] in [address] ED[address] is negative for any acute disease. Chest x-ray is unremarkable. Patient is diagnosed with malignant hypertension and started on nicardipine drip. Her systolic blood pressure when I saw her in the ED was down to 195. Patient admitted to noncompliance with antihypertensives. She stated she was rationing her losartan. She last refilled her medications 6 months ago. She is admitted for further management. Hospitalist ROS - Review of Systems Other: Patient denied any chest pain or palpitation. She denied any shortness of breath. She denied any fever. She denied any visual disturbance. She denied any limb weakness. Except as documented, all other systems reviewed and negative. - Medication Medications: Medication Instructions Recorded Confirmed Type Aspirin [Ecotrin] 325 mg PO DAILY 10/16/19 10/16/19 History Atorvastatin Calcium [Lipitor] 80 mg PO HS #30 tab 10/18/19 Rx Hydrochlorothiazide 25 mg PO DAILY #30 tab 10/18/19 Rx Losartan [Cozaar] 50 mg PO BID #60 tab 10/18/19 Rx NIFEdipine [Procardia XL] 60 mg PO DAILY #30 tab 10/18/19 Rx Hospitalist History - Past Medical History Cardiac: reports: HTN Other Medical History: TIA, history of CVA - Past Surgical History Past Surgical History: reports: - Family History Family History: reports: cardiac disorder (Father) - Social History Smoking Status: Current every day smoker Alcohol: reports: None Drugs: reports: none - Exam General Appearance: NAD, awake alert Eye: PERRL, anicteric sclera ENT: normocephalic atraumatic, moist mucosa Neck: supple, no JVD, no thyromegaly Heart: RRR, no murmur, no gallops Respiratory: CTAB, no wheezes, no rales, no ronchi Gastrointestinal: soft, non-tender, non-distended, normal bowel sounds Extremities: no cyanosis, no edema Skin: normal turgor, no rashes Neurological: cranial nerve grossly intact, no weakness, no focal deficits Musculoskeletal: normal tone, normal strength, no muscle wasting Psychiatric: normal affect, normal behavior, A&O x 3 Hospitalist Results - Labs Result Diagrams: 05/16/20 19:29 05/16/20 19:29 Lab results: WBC 5.6 thou/uL (4.8-10.8) 05/16/20 19:29 Hgb 16.2 g/dL (12.0-16.0) H 05/16/20 19:29 Hct 47.8 % (36.0-47.0) H 05/16/20 19:29 MCV 103.0 fL (78.0-98.0) H 05/16/20 19:29 Plt Count 329 thou/uL (130-400) 05/16/20 19:29 Neutrophils % 62.7 % (42.0-75.0) 05/16/20 19:29 Sodium 141 mmol/L (136-145) 05/16/20 19:29 Potassium 3.5 mmol/L (3.5-5.1) 05/16/20 19:29 Chloride 103 mmol/L (98-107) 05/16/20 19:29 Carbon Dioxide 26 mmol/L (22-29) 05/16/20 19:29 BUN 10 mg/dL (9.8-20.1) 05/16/20 19:29 Creatinine 0.77 mg/dL (0.6-1.1) 05/16/20 19:29 Glucose 79 mg/dL (70-105) 05/16/20 19:29 Calcium 9.3 mg/dL (7.8-10.44) 05/16/20 19:29 Total Bilirubin 0.3 mg/dL (0.2-1.2) 05/16/20 19:29 AST 17 U/L (5-34) 05/16/20 19:29 ALT 12 U/L (8-55) 05/16/20 19:29 Alkaline Phosphatase 83 U/L (40-110) 05/16/20 19:29 Creatine Kinase 47 U/L (29-168) 05/16/20 19:29 CK-MB (CK-2) 1.0 ng/mL (0-6.6) 05/16/20 19:29 Troponin I 0.074 ng/mL (< 0.028) H 05/16/20 22:21 Serum Total Protein 7.1 g/dL (6.0-8.3) 05/16/20 19:29 Albumin 4.3 g/dL (3.5-5.0) 05/16/20 19:29 Hospitalist H&P A/P - Problem (1) Malignant hypertension Code(s): I10 - ESSENTIAL (PRIMARY) HYPERTENSION Status: Acute (2) History of CVA (cerebrovascular accident) Code(s): Z86.73 - PRSNL HX OF TIA (TIA), AND CEREB INFRC W/O RESID DEFICITS Status: Acute (3) Elevated troponin Code(s): R79.89 - OTHER SPECIFIED ABNORMAL FINDINGS OF BLOOD CHEMISTRY Status: Acute - Plan Plan: Elevated troponin likely secondary to demand ischemia. Admit patient to CCU. Continue nicardipine drip started in the ED for target systolic blood pressure of less than 160. Resume home dose oral nifedipine and losartan and wean off nicardipine drip. Obtain echocardiogram. Continue to trend troponin. Aspirin daily. Smoking cessation advised. Multiorgan complications from chronic hypertension discussed with her and she is advised to be compliant with her medications.
[2020-05-16 23:54] VITALS: BMI 21.2
[2020-05-17 02:11] LABS: Troponin I 0.088 ng/mL (< 0.028)
[2020-05-17 04:11] LABS: Band 17 % (5-11); Eosinophils 1 % (0-10); Hemoglobin 15.5 g/dL (12.0-16.0); Lymphocytes 22 % (21-51); MDiff Complete? YES; Mean Corpuscular HGB CONC 34.3 g/dL (32.0-36.0); Mean Corpuscular Hemoglobin 34.8 pg (27.0-31.0); Monocytes 9 % (0-10); Neutrophil 51 % (42-75); Platelet Count 307 thou/uL (130-400); RBC Distribution Width 12.6 % (11.5-14.5); Red Blood Cell (RBC) Count 4.44 mill/uL (4.20-5.40)
[2020-05-17 04:17] LABS: Anion Gap 12 mmol/L (10-20); BUN (Urea Nitrogen) 9 mg/dL (9.8-20.1); Calc. Creatinine Clearance 84 mL/min (70-130); Calcium 8.9 mg/dL (7.8-10.44); Carbon Dioxide 29 mmol/L (22-29); Chloride 104 mmol/L (98-107); Estimated GFR-MDRD 88; Glucose 101 mg/dL (70-105); Sodium 142 mmol/L (136-145)
[2020-05-17 04:22] LABS: Potassium 2.7 mmol/L (3.5-5.1)
[2020-05-17] MEDS ORDERED: Electrolyte Replacement Protocol 1 EACH FS PRN (04:24)
[2020-05-17] MEDS ORDERED: Potassium Chloride 20 MEQ TAB PO SCH ×2 (05:00→11:15)
--- NOTE | 2020-05-17 07:46 | PDOC.HOSPP ---
- Subjective Encounter Date: 05/17/20 Encounter Time: 09:00 Subjective: Patient with frontal headache, feels like her typical migraines, she gets them every other day. Takes Excedrine Migraine at home. Previously on Fiorocet but hasn't had a PCP in over a year. Not taking her meds at home. Had an appt to establish with [facility] but when they heard her BP reading at home they told her to go to the ER. Patient currently off the Nicardipine. BP 150s systolic currently. - Objective Vital Signs & Weight: Vital Signs (12 hours) Temp Pulse Resp BP Pulse Ox 05/17/20 04:00 98.4 F 05/17/20 00:00 98.6 F 97 05/16/20 23:46 98.6 F 63 14 158/94 H 99 Weight Admit Weight 127 lb 10.362 oz Weight 127 lb 13.89 oz Most Recent Monitor Data Heart Rate from ECG 55 NIBP 156/89 NIBP BP-Mean 111 Respiration from ECG 17 SpO2 97 I&O: 05/16/20 05/17/20 05/18/20 06:59 06:59 06:59 Intake Total 275 Output Total 150 Balance 125 Result Diagrams: 05/17/20 03:31 05/17/20 03:31 Hospitalist ROS - Review of Systems Constitutional: denies: fever, chills Respiratory: denies: cough, shortness of breath Cardiovascular: denies: chest pain, palpitations Gastrointestinal: denies: nausea, vomiting, abdominal pain - Exam General Appearance: NAD, awake alert ENT: moist mucosa Heart: RRR, no murmur, no gallops, no rubs Respiratory: CTAB, no wheezes, no rales, no ronchi Gastrointestinal: soft, non-tender, non-distended, normal bowel sounds Neurological: no focal deficits Psychiatric: normal affect, normal behavior, A&O x 3 Hosp A/P (1) Malignant hypertension Code(s): I10 - ESSENTIAL (PRIMARY) HYPERTENSION Status: Acute (2) Elevated troponin Code(s): R79.89 - OTHER SPECIFIED ABNORMAL FINDINGS OF BLOOD CHEMISTRY Status: Acute (3) Hypokalemia Code(s): E87.6 - HYPOKALEMIA Status: Acute (4) Right renal artery stenosis Code(s): I70.1 - ATHEROSCLEROSIS OF RENAL ARTERY Status: Chronic (5) History of CVA (cerebrovascular accident) Code(s): Z86.73 - PRSNL HX OF TIA (TIA), AND CEREB INFRC W/O RESID DEFICITS Status: Chronic - Plan Blood pressure improved. Will restart home meds and move out of ICU if BP stays stable off Nicardipine this AM. Medication non-compliance the source of patient's issue. Indeterminate troponins from cardiac strain, no evidence ACS. Replace potassium and recheck later this morning. DVT Proph: Lovenox GI Proph: Pepcid
[2020-05-17] MEDS: Aspirin 81 mg Enteric Coated Tablet PO SCH (08:09)
[2020-05-17] MEDS: Hydrochlorothiazide 25 MG TAB PO SCH (08:09)
[2020-05-17] MEDS: Losartan 25 MG TAB PO SCH (08:09)
[2020-05-17] MEDS: Famotidine 20 MG TAB PO SCH ×2 (08:09→20:07)
[2020-05-17] MEDS: Enoxaparin Sodium 40 MG/0.4 ML SYRINGE SC SCH (08:09)
[2020-05-17] MEDS: NIFEdipine XL 60 MG TAB PO SCH (08:10)
[2020-05-17] MEDS ORDERED: Amlodipine 10 MG TAB PO SCH (09:00)
[2020-05-17] MEDS ORDERED: FLU VACC QS2020-21(6MOS UP)/PF 60 MCG/0.5 ML SYRINGE IM ONE (09:00)
[2020-05-17] MEDS ORDERED: Aspirin/APAP/Caffeine Tab (Excedrin Migraine) PO SCH (09:00)
[2020-05-17] MEDS ORDERED: Electrolyte Replacement Protocol FS PRN (11:15)
[2020-05-17 11:22] LABS: SARS-CoV-2 MS2 Positive; SARS-CoV-2 N Gene Positive; SARS-CoV-2 S Gene Positive; SARS-CoV-2 by NAA DETECTED (NotDetected); SARS-CoV-2 orf1ab Positive
[2020-05-17 11:28] LABS: Anion Gap 12 mmol/L (10-20); BUN (Urea Nitrogen) 9 mg/dL (9.8-20.1); Calc. Creatinine Clearance 81 mL/min (70-130); Calcium 9.3 mg/dL (7.8-10.44); Carbon Dioxide 27 mmol/L (22-29); Chloride 105 mmol/L (98-107); Estimated GFR-MDRD 84; Glucose 115 mg/dL (70-105); Potassium 3.8 mmol/L (3.5-5.1); Sodium 140 mmol/L (136-145)
[2020-05-17] MEDS ORDERED: Magnesium 2 GM/50 ML 2 GM in Premix Bag 1 BAG IVPB SCH (12:30)
[2020-05-17] MEDS: niCARdipine 25 MG in Sodium Chloride 0.9% 250 ML 250 ML IVPB SCH (16:17)
[2020-05-17 16:54] LABS: Potassium 3.7 mmol/L (3.5-5.1)
[2020-05-17] MEDS ORDERED: Acetaminophen 500 MG TAB PO PRN (19:53)
[2020-05-17] MEDS: Atorvastatin Calcium 40 MG TAB PO SCH (20:07)
[2020-05-18] MEDS ORDERED: Labetalol HCl 100 MG/20 ML VIAL SLOW IVP PRN (00:10)
[2020-05-18] MEDS: niCARdipine 25 MG in Sodium Chloride 0.9% 250 ML 250 ML IVPB SCH (03:44)
[2020-05-18 04:06] LABS: #Eosinphils 0.1 thou/uL (0.0-0.7); #Lymphocytes 1.2 thou/uL (1.20-3.40); #Monocytes 0.7 thou/uL (0.11-0.59); #Neutrophils 8.4 thou/uL (1.40-6.50); %Basophils 0.3 % (0.0-1.0); %Eosinophils 0.9 % (0.0-10.0); %Lymphocytes 11.3 % (21.0-51.0); %Monocytes 6.8 % (0.0-10.0); %Neutrophils 80.7 % (42.0-75.0); Hemoglobin 16.4 g/dL (12.0-16.0); Mean Corpuscular Hemoglobin 33.7 pg (27.0-31.0); Mean Platelet Volume 8.7 fL (7.4-10.4); Platelet Count 307 thou/uL (130-400); RBC Distribution Width 12.7 % (11.5-14.5); Red Blood Cell (RBC) Count 4.87 mill/uL (4.20-5.40); White Blood Cell (WBC) Count 10.4 thou/uL (4.8-10.8)
[2020-05-18 04:22] LABS: Anion Gap 14 mmol/L (10-20); BUN (Urea Nitrogen) 9 mg/dL (9.8-20.1); Calc. Creatinine Clearance 81 mL/min (70-130); Calcium 9.4 mg/dL (7.8-10.44); Carbon Dioxide 25 mmol/L (22-29); Chloride 102 mmol/L (98-107); Estimated GFR-MDRD 84; Glucose 99 mg/dL (70-105); Potassium 3.1 mmol/L (3.5-5.1); Sodium 138 mmol/L (136-145)
[2020-05-18] MEDS ORDERED: Potassium Chloride 20 MEQ TAB PO SCH (04:45)
[2020-05-18] MEDS: Enoxaparin Sodium 40 MG/0.4 ML SYRINGE SC SCH (08:19)
[2020-05-18] MEDS: Losartan 25 MG TAB PO SCH (08:19)
[2020-05-18] MEDS: Hydrochlorothiazide 25 MG TAB PO SCH (08:19)
[2020-05-18] MEDS: NIFEdipine XL 60 MG TAB PO SCH ×2 (08:19→08:25)
[2020-05-18] MEDS: Famotidine 20 MG TAB PO SCH ×2 (08:19→19:33)
[2020-05-18] MEDS: Aspirin 81 mg Enteric Coated Tablet PO SCH (08:19)
--- NOTE | 2020-05-18 08:19 | PDOC.HOSPP ---
- Subjective Encounter Date: 05/18/20 Encounter Time: 10:00 Subjective: Patient with improvement in GONZ[place]Z with excedrine yesterday, but came back this AM. Awaiting excedrine from the Pharmacy right now. Off Cardene for past 2 hours since given AM meds. Covid-19 came back positive. Not really having any symptoms except a rare cough since came in the hospital that she chalks up to not smoking for a few days. - Objective Vital Signs & Weight: Vital Signs (12 hours) Temp 05/18/20 03:00 98.4 F 05/17/20 23:00 98.5 F Weight Admit Weight 127 lb 10.362 oz Weight 126 lb 8.725 oz Most Recent Monitor Data Heart Rate from ECG 78 NIBP 157/83 NIBP BP-Mean 107 Respiration from ECG 17 SpO2 95 I&O: 05/17/20 05/18/20 05/19/20 06:59 06:59 06:59 Intake Total 275 1213 Output Total 150 2025 Balance 125 -812 Result Diagrams: 05/18/20 03:00 05/18/20 03:00 Hospitalist ROS - Review of Systems Constitutional: denies: fever, chills Respiratory: reports: cough (tiny bit for a few days, though maybe due to not smoking). denies: shortness of breath Cardiovascular: denies: chest pain, palpitations, edema Gastrointestinal: denies: nausea, vomiting, abdominal pain - Medication Medications: Active Medications Generic Name Dose Route Start Last Admin Trade Name Freq PRN Reason Stop Dose Admin Acetaminophen 500 mg 05/17/20 19:53 05/17/20 20:07 Acetaminophen 500 Mg Tab PO 500 mg Q4H PRN Administration Headache/Fever or Pain Aspirin 81 mg 05/17/20 09:00 05/17/20 08:09 Aspirin 81 Mg Enteric Coated Tablet PO 81 mg DAILY ANANTH Administration Atorvastatin Calcium 80 mg 05/17/20 21:00 05/17/20 20:07 Atorvastatin Calcium 40 Mg Tab PO 80 mg HS ANANTH Administration Enoxaparin Sodium 40 mg 05/17/20 09:00 05/17/20 08:09 Enoxaparin Sodium 40 Mg/0.4 Ml Syringe SC 40 mg 0900 ANANTH Administration Famotidine 20 mg 05/17/20 09:00 05/17/20 20:07 Famotidine 20 Mg Tab PO 20 mg BID ANANTH Administration Hydrochlorothiazide 25 mg 05/17/20 09:00 05/17/20 08:09 Hydrochlorothiazide 25 Mg Tab PO 25 mg DAILY ANANTH Administration Nicardipine HCl 25 mg/ Sodium 260 mls @ 0 mls/hr 05/16/20 23:45 05/18/20 03:44 Chloride IVPB 260 mls INF ANANTH Administration Protocol Titrate Losartan Potassium 100 mg 05/17/20 09:00 05/17/20 08:09 Losartan 25 Mg Tab PO 100 mg DAILY ANANTH Administration Nifedipine 60 mg 05/17/20 09:00 05/17/20 08:10 Nifedipine Xl 60 Mg Tab PO 60 mg DAILY ANANTH Administration - Exam General Appearance: NAD, awake alert ENT: moist mucosa Heart: RRR, no murmur, no gallops, no rubs Respiratory: CTAB, no wheezes, no rales, no ronchi Gastrointestinal: soft, non-tender, non-distended, normal bowel sounds Psychiatric: normal affect, normal behavior, A&O x 3 Hosp A/P (1) Malignant hypertension Code(s): I10 - ESSENTIAL (PRIMARY) HYPERTENSION Status: Acute (2) Elevated troponin Code(s): R79.89 - OTHER SPECIFIED ABNORMAL FINDINGS OF BLOOD CHEMISTRY Status: Acute (3) Hypokalemia Code(s): E87.6 - HYPOKALEMIA Status: Acute (4) Right renal artery stenosis Code(s): I70.1 - ATHEROSCLEROSIS OF RENAL ARTERY Status: Chronic (5) History of CVA (cerebrovascular accident) Code(s): Z86.73 - PRSNL HX OF TIA (TIA), AND CEREB INFRC W/O RESID DEFICITS St atus: Chronic - Plan Blood pressure improved. Home meds restarted, but did have to restart Nicardipine yesterday. Now weaned off. Will increase Nifedipine XL and add hydralazine. Medication non-compliance the source of patient's issue. Indeterminate troponins from cardiac strain, no evidence ACS. ECHO with LVH and diastolic dysfunction. Replacing potassium and will start daily supplement. Covid-19 isolation, no symptoms. Will transfer to telemetry. If good BP control tomorrow can d/c home. DVT Proph: Lovenox GI Proph: Pepcid
[2020-05-18] MEDS ORDERED: niCARdipine 25 MG in Sodium Chloride 0.9% 250 ML 250 ML IVPB SCH (08:30)
[2020-05-18] MEDS: Ondansetron PF 4 MG/2 ML Vial IVP PRN ×2 (08:35→17:37)
[2020-05-18] MEDS: NIFEdipine XL 90 MG TAB PO SCH (08:35)
[2020-05-18] MEDS: hydrALAZINE 25 MG TAB PO SCH ×3 (08:35→19:33)
[2020-05-18] MEDS: Aspirin/APAP/Caffeine Tab (Excedrin Migraine) PO PRN ×2 (10:44→17:37)
[2020-05-18 13:39] LABS: Potassium 3.8 mmol/L (3.5-5.1)
[2020-05-18] MEDS: Atorvastatin Calcium 40 MG TAB PO SCH (19:33)
[2020-05-19] MEDS: Aspirin/APAP/Caffeine Tab (Excedrin Migraine) PO PRN ×2 (01:43→20:15)
[2020-05-19] MEDS: Ondansetron PF 4 MG/2 ML Vial IVP PRN ×2 (01:44→09:20)
[2020-05-19 06:41] LABS: MDiff Complete? YES; Mean Corpuscular HGB CONC 33.8 g/dL (32.0-36.0); Mean Platelet Volume 8.6 fL (7.4-10.4); Platelet Count 287 thou/uL (130-400); RBC Distribution Width 12.6 % (11.5-14.5); White Blood Cell (WBC) Count 15.8 thou/uL (4.8-10.8)
[2020-05-19 06:42] LABS: Band 7 % (5-11); Lymphocytes 13 % (21-51); Monocytes 9 % (0-10); Neutrophil 71 % (42-75); Platelet Morphology Comment Appears Adequate
[2020-05-19 06:48] LABS: Anion Gap 16 mmol/L (10-20); BUN (Urea Nitrogen) 17 mg/dL (9.8-20.1); Calc. Creatinine Clearance 56 mL/min (70-130); Calcium 9.3 mg/dL (7.8-10.44); Carbon Dioxide 24 mmol/L (22-29); Chloride 99 mmol/L (98-107); Estimated GFR-MDRD 56; Glucose 96 mg/dL (70-105); Potassium 3.2 mmol/L (3.5-5.1); Sodium 136 mmol/L (136-145)
[2020-05-19] MEDS ORDERED: Potassium Chloride 20 MEQ TAB PO SCH ×2 (07:15→08:00)
[2020-05-19] MEDS: Famotidine 20 MG TAB PO SCH ×2 (07:53→20:15)
[2020-05-19] MEDS: Aspirin 81 mg Enteric Coated Tablet PO SCH (07:53)
[2020-05-19] MEDS: Hydrochlorothiazide 25 MG TAB PO SCH (07:53)
[2020-05-19] MEDS: Losartan 25 MG TAB PO SCH (07:54)
[2020-05-19] MEDS: Enoxaparin Sodium 40 MG/0.4 ML SYRINGE SC SCH (07:54)
[2020-05-19] MEDS: hydrALAZINE 25 MG TAB PO SCH (07:55)
[2020-05-19] MEDS: NIFEdipine XL 90 MG TAB PO SCH (09:18)
[2020-05-19] MEDS: Multivit, Therapeutic 1 TAB PO SCH (09:20)
[2020-05-19] MEDS: Cyanocobalamin (Vitamin B-12) 1,000 MCG TAB PO SCH (09:20)
[2020-05-19] MEDS: Folic Acid 1 MG TAB PO SCH (09:20)
[2020-05-19] MEDS ORDERED: Magnesium 2 GM/50 ML 2 GM in Premix Bag 1 BAG IVPB SCH (09:30)
[2020-05-19] MEDS ORDERED: Magnesium Sulfate 2 GM in Sodium Chloride 0.9% 100 ML IVPB SCH (10:00)
[2020-05-19] MEDS ORDERED: Enalaprilat Dihydrate 1.25 MG/ML VIAL SLOW IVP PRN (10:13)
[2020-05-19] MEDS ORDERED: Nicotine 14 MG PATCH TD PRN (11:20)
[2020-05-19] MEDS ORDERED: Diabetic Tussin 200 MG/10 ML UDCUP PO PRN (11:21)
[2020-05-19] MEDS: Potassium Chloride 20 MEQ TAB PO SCH (17:21)
--- NOTE | 2020-05-19 18:47 | PDOC.HOSPP ---
- Subjective Encounter Date: 05/19/20 Encounter Time: 10:30 Subjective: Patient seen and examined for hypertensive crisis. Was also found to have Covid infection without pneumonia. Feels lightheaded with some headache. Also had some diarrhea this morning that has improved. Denies any focal deficit. No chest pain or palpitations reported - Objective Vital Signs & Weight: Vital Signs (12 hours) Temp Pulse Resp BP Pulse Ox 05/19/20 12:30 98.1 F 65 18 165/90 H 93 L 05/19/20 10:25 98.3 F 59 L 16 128/85 93 L 05/19/20 09:18 73 05/19/20 08:00 93 L 05/19/20 07:55 73 Weight Admit Weight 127 lb 10.362 oz Weight 125 lb Most Recent Monitor Data Heart Rate from ECG 70 NIBP 124/74 NIBP BP-Mean 90 Respiration from ECG 19 SpO2 93 I&O: 05/18/20 05/19/20 05/20/20 06:59 06:59 06:59 Intake Total 1213 40 Output Total 7 300 Balance -812 -260 Result Diagrams: 05/19/20 05:52 05/19/20 05:52 Additional Labs: Accuchecks 05/19/20 09:29 POC Glucose 91 Abnormal Lab Results - Last 48 hrs 05/18/20 03:00: Potassium 3.1 L, BUN 9 L 05/18/20 03:00: Hgb 16.4 H, Hct 49.8 H, MCV 102.0 H, MCH 33.7 H, Neutrophils % 80.7 H, Lymphocytes % 11.3 L, Neutrophils # 8.4 H, Monocytes # 0.7 H 05/19/20 05:52: Potassium 3.2 L 05/19/20 05:52: WBC 15.8 H, Hct 47.3 H, MCV 101.0 H, MCH 34.0 H, Lymphocytes % (Manual) 13 L Radiology Reviewed by me: Yes (Chest x-raynegative for pneumonia) Hospitalist ROS - Review of Systems Constitutional: reports: weakness. denies: fever, chills, sweats, malaise, other Cardiovascular: denies: chest pain, palpitations, orthopnea, paroxysmal noc. dyspnea, edema, light headedness, other - Medication Medications: Active Medications Generic Name Dose Route Start Last Admin Trade Name Freq PRN Reason Stop Dose Admin Acetaminophen 500 mg 05/17/20 19:53 05/17/20 20:07 Acetaminophen 500 Mg Tab PO 500 mg Q4H PRN Administration Headache/Fever or Pain Acetaminophen/Aspirin/Caffeine 2 tab 05/18/20 09:45 05/19/20 01:43 Aspirin/Apap/Caffeine Tab (Excedrin Migraine) PO 2 tab Q8H PRN Administration Headache Aspirin 81 mg 05/17/20 09:00 05/19/20 07:53 Aspirin 81 Mg Enteric Coated Tablet PO 81 mg DAILY ANANTH Administration Atorvastatin Calcium 80 mg 05/17/20 21:00 05/18/20 19:33 Atorvastatin Calcium 40 Mg Tab PO 80 mg HS ANANTH Administration Cyanocobalamin 1,000 mcg 05/19/20 09:00 05/19/20 09:20 Cyanocobalamin (Vitamin B-12) 1,000 Mcg Tab PO 1,000 mcg DAILY ANANTH Administration Enoxaparin Sodium 40 mg 05/17/20 09:00 05/19/20 07:54 Enoxaparin Sodium 40 Mg/0.4 Ml Syringe SC 40 mg 09 ANANTH Administration Famotidine 20 mg 05/17/20 09:00 05/19/20 07:53 Famotidine 20 Mg Tab PO 20 mg BID ANANTH Administration Folic Acid 1 mg 05/19/20 09:00 05/19/20 09:20 Folic Acid 1 Mg Tab PO 1 mg DAILY ANANTH Administration Multivitamins 1 tab 05/19/20 09:00 05/19/20 09:20 Multivit, Therapeutic 1 Tab PO 1 tab DAILY ANANTH Administration Ondansetron HCl 4 mg 05/16/20 23:28 05/19/20 09:20 Ondansetron Pf 4 Mg/2 Ml Vial IVP 4 mg Q6H PRN Administration Nausea/Vomiting Potassium Chloride 20 meq 05/19/20 17:00 05/19/20 17:21 Potassium Chloride 20 Meq Tab PO 20 meq BID-WM ANANTH Administration Sodium Chloride 10 ml 05/19/20 09:00 05/19/20 07:55 Flush - Normal Saline 10 Ml Syringe IVF 10 ml Q12HR ANANTH Administration - Exam General Appearance: NAD Neck: supple, no JVD Heart: RRR, no gallops, no rubs, normal peripheral pulses Respiratory: no wheezes, no rales, no ronchi, normal chest expansion Gastrointestinal: soft, non-tender, normal bowel sounds, no guarding, no rigidity Extremities: no cyanosis, no clubbing Neurological: cranial nerve grossly intact, normal sensation to touch, no weakness, no focal deficits, no new deficit Musculoskeletal: normal tone, generalized weakness Psychiatric: normal affect, A&O x 3 Hosp A/P - Plan DVT proph w/SCDs Hypertensive emergency requiring Cardene drip COVID-19 infection without pneumonia Headache due to uncontrolled hypertension/? Migraine Tobacco dependence Hypokalemia/hypomagnesemia Chronic diastolic dysfunction Mild tricuspid regurgitation Mild mitral regurgitation GERD ? Right renal artery stenosison ultrasound 10/24 Plan: Discontinue hydralazine. Continue Procardia XLreduce dose to 60 mg daily. Change losartan to 50 mg twice daily. Hold hydrochlorothiazide for now until potassium is corrected. Add potassium supplementation. Recheck labs in a.m. Replace magnesium. Tobacco cessation. Counseled on COVID-19 isolation. Advised patient to monitor pulse ox closely. Will check inflammatory markers in a.m.
[2020-05-19] MEDS ORDERED: cloNIDine 0.1 MG TAB PO PRN (19:11)
[2020-05-19] MEDS ORDERED: Labetalol HCl 100 MG/20 ML VIAL SLOW IVP PRN (19:11)
[2020-05-19] MEDS: Atorvastatin Calcium 40 MG TAB PO SCH (20:14)
[2020-05-19] MEDS: guaiFENesin ER 600 MG TAB PO SCH (20:15)
[2020-05-19] MEDS ORDERED: Zinc Sulfate 220 MG CAP PO SCH (21:00)
[2020-05-20 07:43] LABS: Anion Gap 15 mmol/L (10-20); BUN (Urea Nitrogen) 21 mg/dL (9.8-20.1); Calc. Creatinine Clearance 69 mL/min (70-130); Carbon Dioxide 24 mmol/L (22-29); Chloride 100 mmol/L (98-107); Estimated GFR-MDRD 67; Glucose 84 mg/dL (70-105); Potassium 3.4 mmol/L (3.5-5.1); Sodium 136 mmol/L (136-145)
[2020-05-20] MEDS ORDERED: Ascorbic Acid 500 mg Chewable Tablet PO SCH (09:00)
[2020-05-20] MEDS ORDERED: NIFEdipine XL 60 MG TAB PO SCH (09:00)
[2020-05-20] MEDS ORDERED: Multivit, Therapeutic 1 TAB PO SCH (09:00)
[2020-05-20] MEDS: guaiFENesin ER 600 MG TAB PO SCH (09:36)
[2020-05-20] MEDS: Multivit, Therapeutic 1 TAB PO SCH (09:36)
[2020-05-20] MEDS: Potassium Chloride 20 MEQ TAB PO SCH (09:36)
[2020-05-20] MEDS: Aspirin 81 mg Enteric Coated Tablet PO SCH (09:36)
[2020-05-20] MEDS: Famotidine 20 MG TAB PO SCH (09:36)
[2020-05-20] MEDS: Cyanocobalamin (Vitamin B-12) 1,000 MCG TAB PO SCH (09:37)
[2020-05-20] MEDS: Folic Acid 1 MG TAB PO SCH (09:37)
[2020-05-20 11:21] VITALS: BP 142/99; TEMP 98.4
[2020-05-20] MEDS ORDERED: Potassium Chloride 20 MEQ TAB PO SCH (13:30)
--- NOTE | 2020-05-20 17:15 | DIS ---
DATE OF ADMISSION: 05/16/2020 DATE OF DISCHARGE: 05/20/2020 DISCHARGE DISPOSITION: To home. PRIMARY DISCHARGE DIAGNOSES: 1. Hypertensive emergency on arrival, resolved. 2. Episode of diarrhea, resolved. 3. COVID-19 positive virus status with no pneumonia. 4. Migraine, resolved. 5. Noncompliance with medication. PROCEDURES DONE DURING HOSPITALIZATION: Chest x-ray done showed no acute intrathoracic abnormality. CT brain without contrast done showed chronic ischemic small vessel disease. No acute intracranial abnormality. Echo with 2D Doppler done showed ejection fraction of 60% to 65% with moderate concentric LVH. H and H of 16 and 47, platelet count 287, MCV 101. BUN 21, creatinine 0.8. CRP 11.1. Ferritin was 211. TSH 2.03. COVID-19 PCR was positive on 05/16/2020. DISCHARGE MEDICATIONS: 1. Aspirin 81 mg p.o. daily. 2. Cozaar 50 mg twice daily. 3. Hydralazine 25 mg 3 times daily. 4. Hydrochlorothiazide 25 mg daily. 5. Lipitor 40 mg p.o. at bedtime. 6. Procardia XL 60 mg p.o. daily. 7. Vitamin B12 of 1000 mcg p.o. daily. 8. Vitamin C 1000 mg p.o. daily. 9. Zinc sulfate 220 mg p.o. daily. ALLERGIES: TO CLONIDINE AND MORPHINE. DISCHARGE PLAN: The patient to follow up with her primary care physician at [facility] in 1 week. BRIEF COURSE DURING HOSPITALIZATION: The patient initially got admitted on the 16 of May with complaints of headache. Her initial blood pressures were 230/115. She has had a CT brain done, which did not reveal any acute abnormality. The patient was placed on Cardene drip and admitted to ICU initially. She has had stabilization of her blood pressure after instituting oral medication. She was later downgraded to medical floor. Her headache has completely resolved. Prior to discharge, she is ambulating and eating well. The patient is known to be noncompliant with medication likely due to financial reasons. She was counseled regarding the same. Her medications have been faxed to [facility] and they have delivered it to her in the room. She has positive COVID-19 PCR test, but has no symptoms for the same. She has had family members, who had similar results and have recovered completely at home. She is hemodynamically stable and is wanting to go home today. She is advised to check her blood pressure and pulse twice daily and record to follow up with primary care physician in a week. Please note, I have seen and examined the patient on the day of discharge. Job ID: [id number]
[2020-05-20] MEDS ORDERED: Losartan 25 MG TAB PO SCH (21:00)
--- NOTE | 2020-05-27 17:38 | EKG ---
Test Reason : HTN Blood Pressure : / mmHG Vent. Rate : 057 BPM Atrial Rate : 057 BPM P-R Int : 152 ms QRS Dur : 090 ms QT Int : 518 ms P-R-T Axes : 026 004 129 degrees QTc Int : 504 ms Sinus bradycardia T wave abnormality, consider lateral ischemia Prolonged QT Abnormal ECG Confirmed by MO VILLELA M.D. ([id number]), video news editor JEFF FARR ([id number]) on 05/27/2020 5:38:04 PM Referred By: Confirmed By:MO VILLELA M.D.
== END 2020-05-20 13:35 | disposition home or self-care (01) | DRG 304 ==
LOC: ERS 18:52 → CCU 22:08 → T4-A 05-18 11:22
PROVIDERS: ADMIT Internal Medicine; ATTEND Internal Medicine
PROC: 8E0ZXY6 Isolation (ICD-10-PCS; principal; 2020-05-18)
DX: I16.1 Hypertensive emergency (principal); U07.1 COVID-19; I24.8 Other forms of acute ischemic heart disease; I10 Essential (primary) hypertension; F41.9 Anxiety disorder, unspecified; I70.1 Atherosclerosis of renal artery; R19.7 Diarrhea, unspecified; G43.909 Migraine, unspecified, not intractable, without status migrainosus; F17.210 Nicotine dependence, cigarettes, uncomplicated; D63.1 Anemia in chronic kidney disease; I08.1 Rheumatic disorders of both mitral and tricuspid valves; E87.6 Hypokalemia; E83.42 Hypomagnesemia; Z86.73 Personal history of transient ischemic attack (TIA), and cerebral infarction without residual deficits; Z79.82 Long term (current) use of aspirin; Z71.6 Tobacco abuse counseling; Z98.51 Tubal ligation status; Z88.5 Allergy status to narcotic agent; Z91.14 Patient's other noncompliance with medication regimen; Z88.8 Allergy status to other drugs, medicaments and biological substances
CPT/HCPCS: 36415; 36416; 70450; 71045; 80048; 80053; 82550; 82553; 82728; 83735; 84443; 84484; 85007; 85025; 85027; 85379; 86140; 87635; 90471; 90662; 90732; 93005; 93306; 96365; 96366; 96375; G0008; G0009; J1650; J2405; J3475; J7050; U0003

== ENCOUNTER 2020-10-26 17:48 | Emergency (ER) | payer SELFPAY ==
[2020-10-26] MEDS ORDERED: cloNIDine 0.1 MG TAB ONE (18:04)
[2020-10-26 18:42] LABS: #Eosinphils 0.2 thou/uL (0.0-0.7); #Lymphocytes 1.6 thou/uL (1.20-3.40); #Monocytes 0.6 thou/uL (0.11-0.59); #Neutrophils 5.7 thou/uL (1.40-6.50); %Basophils 0.5 % (0.0-1.0); %Eosinophils 1.9 % (0.0-10.0); %Lymphocytes 19.9 % (21.0-51.0); %Monocytes 7.1 % (0.0-10.0); %Neutrophils 70.7 % (42.0-75.0); Hemoglobin 17.3 g/dL (12.0-16.0); Mean Corpuscular HGB CONC 33.3 g/dL (32.0-36.0); Mean Corpuscular Hemoglobin 33.5 pg (27.0-31.0); Mean Platelet Volume 7.8 fL (7.4-10.4); Platelet Count 425 thou/uL (130-400); RBC Distribution Width 12.7 % (11.5-14.5); Red Blood Cell (RBC) Count 5.17 mill/uL (4.20-5.40); White Blood Cell (WBC) Count 8.1 thou/uL (4.8-10.8)
[2020-10-26 19:03] LABS: ALT (SGPT) 13 U/L (8-55); AST (SGOT) 25 U/L (5-34); Albumin 4.6 g/dL (3.5-5.0); Alkaline Phosphatase 94 U/L (40-110); Anion Gap 15 mmol/L (10-20); BUN (Urea Nitrogen) 9 mg/dL (9.8-20.1); Bilirubin, Total 0.6 mg/dL (0.2-1.2); Calc. Creatinine Clearance 0 mL/min (70-130); Calcium 9.9 mg/dL (7.8-10.44); Carbon Dioxide 28 mmol/L (22-29); Chloride 101 mmol/L (98-107); Globulin 3.8 g/dL (2.4-3.5); Glucose 83 mg/dL (70-105); Potassium 3.3 mmol/L (3.5-5.1); Protein, Total 8.4 g/dL (6.0-8.3); Sodium 141 mmol/L (136-145)
[2020-10-26] MEDS ORDERED: Ketorolac Tromethamine 30 MG/ML VIAL ONE (19:14)
== END 2020-10-26 19:42 | disposition home or self-care (01) ==
LOC: ERS 17:48
DX: I10 Essential (primary) hypertension (principal); F17.210 Nicotine dependence, cigarettes, uncomplicated
CPT/HCPCS: 36415; 80053; 85025; 93005; 96372; J1885